=== PATIENT | male | born 1940 | race Caucasian/White ===

== ENCOUNTER 2019-05-27 09:51 | Outpatient (RCR) | payer OTHER, SELFPAY ==
--- NOTE | 2019-05-27 16:05 | PTOPEVAL ---
Thank you for referring this patient to [facility]. Please review, sign, date and return this plan of care JAN. I agree with and certify that the following plan of care is medically necessary. 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 reports that he underwent Query Text:As Reported By Patient/ knee replacment in February. Family He reports he was suppose to start OP rehab 1 month ago, but was unable to because of recent eye surgery. He reports that he currently has no pain in the right knee. He reports that he still utilizes a cane for long distance walking. He reports that his goal for therpay is to walk without an AD with all IADL's. Prior Level of Function Activity Level (Last 3 Months) Hand Dominance Right Activity of Daily Living Ability Independent Indoor/Home Mobility Independent Community Mobility Independent Stairs Ability Independent Functional Cognition (Planning, Shopping Independent , Taking Medications) Cooking Yes Cleaning Yes Laundry Yes Shopping Yes Driving Yes Pain Assessment Pain Scale Pain Scale Used Numeric (1 - 10) Self Report Pain Assessment Right Knee(s) Reported Pain Level 0 Current Pain Intensity 0 Lowest Pain Intensity 0 Pain Aggravating Factors None Pain Behaviors None Pain Relief Interventions Used By None Patient Pain Score Pain Score 0: Self Report Lower Extremity Range of Motion General Lower Extremity Range of Motion Gross Lower Extremity Range of Motion Pt. presents with 5-115 Comments degrees right knee AROM Lower Extremity Muscle Strength Testing General Lower Extremity Strength Gross Lower Extremity Strength right hip flexion 4+/5, left hip flexion 5/5, right knee flexion
== END 2019-06-27 11:04 | disposition home or self-care (01) ==
LOC: CHSPT 09:51
DX: Z96.651 Presence of right artificial knee joint (principal)
CPT/HCPCS: 97110; 97161; 97530

== ENCOUNTER 2019-10-03 08:37 | Emergency (ER) | payer OTHER, SELFPAY ==
[2019-10-03 08:45] VITALS: BP 141/79; PULSE 74; RESP 18; O2SAT 97
[2019-10-03] MEDS: methylPREDNISolone ACETATE 40 MG/ML VIAL 80 MG IM (09:00)
--- NOTE | 2019-10-03 09:05 | ED.ALLEREA ---
HPI - Allergic Reaction General Stated complaint: bite on arm Source: patient Mode of arrival: ambulatory Limitations: no limitations History of Present Illness HPI narrative: This is an 79-year-old gentleman that presents with a insect bite with mild inflammation to his right forearm that occurred yesterday while he was sitting in a swing currently there is a approximately 3cm indurated area that is red with a central punctate lesion that is itchy nontender no pain no drainage no numbness or tingling in his fingers has a good brisk radial pulse has good range of motion no hand swelling no shortness of breath no nausea vomiting no audible wheezing no fever chills. complaint: allergic reaction Onset (ago): day(s) Exposure: insect bite Symptoms: rash and itching Severity: mild Treatment prior to arrival: none Previous Allergic Reaction History: none Related Data Allergies Allergy/AdvReac Type Severity Reaction Status Date / Time No Known Allergies Allergy Verified 10/03/19 09:11 Review of Systems Review of Systems: All systems reviewed & are unremarkable except as noted in HPI and below PMFSH Past Medical History Medical History HTN (hypertension) Exam Const: General: no acute distress and alert Orientation/consciousness: patient oriented x3 HENMT: Head: normal to inspection Eyes: Conjunctivae: conjunctivae normal Pupils: Equal, round and reactive pupils present Neck: Neck: normal visual inspection and no lymphadenopathy Chest: Chest palpation & inspection: normal inspection of the chest Resp: Effort & Inspection: normal respiratory effort Auscultation: clear to auscultation bilaterally Cardio: Rate: regular rate Rhythm: regular rhythm GI: GI Palp: Yes Soft to palpation Auscultation: normal bowel sounds Skin: General skin exam: normal color Other: 3Cm indurated area right forearm with a central punctate lesion, with no drainage no tenderness just itching Neuro: General: patient oriented x3, moves all extremities and no meningeal signs Extrem: General: normal to inspection Psych: Appearance: grossly normal Affect: normal affect Attitude: cooperative Thought content: Yes Normal thought content present Course Course Emergency Course: reassured patient that this appears to be a insect bite related to possible local reaction does not appear ulcerated with no drainage, patient received IM Depo-Medrol 80 mg and advised patient to take Zyrtec 10 mg [id number] daily for 1 week along with prescribed a Medrol Dosepak. Critical Care Time Critical Care Time Critical Care Time: No Discharge Plan Discharge Clinical Impression: Insect bite Qualifiers: Encounter type: initial encounter Site of insect bite: forearm Laterality: right Qualified Code(s): S50.861A - Insect bite (nonvenomous) of right forearm, initial encounter Allergic reaction Qualifiers: Encounter type: initial encounter Qualified Code(s): T78.40XA - Allergy, unspecified, initial encounter Patient Disposition: Home, Self-Care Condition: Stable Instructions: Antibiotic Form Additional Instructions: Take medicine as prescribed and follow-up with primary care physician if symptoms persist or worsen. Prescriptions: New methylprednisolone [Medrol (Estevan)] 4 mg tablets,dose pack See Rx Instructions .ROUTE .COMPLEX Qty: 21 RF: 0 Follow-up/Referrals: UNKNOWN,DOCTOR [Primary Care Provider] - Time of Disposition: 09:12
--- NOTE | 2019-10-03 12:56 | PCCCNOTE ---
Called ED [facility]. Spoke with Javon
== END 2019-10-03 09:23 | disposition home or self-care (01) ==
PROVIDERS: Emergency Provider Emergency Medicine
DX: S50.861A Insect bite (nonvenomous) of right forearm, initial encounter (principal); W57.XXXA Bitten or stung by nonvenomous insect and other nonvenomous arthropods, initial encounter; T78.40XA Allergy, unspecified, initial encounter
CPT/HCPCS: 96372; 99283; J1030

== ENCOUNTER 2021-02-13 10:58 | Outpatient (RCR) | payer OTHER, SELFPAY ==
--- NOTE | 2021-02-13 11:46 | PTOPEVAL ---
Thank you for referring Shan Galeano to [facility] [place].? The patient is scheduled to be seen for therapy? ____x/week for ___ weeks. Please review, sign, date and return this plan of care JAN. I agree with and certify that the following plan of care is medically necessary. 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 he reports the knee cap will slide out on him at times. he reports he has had about 3 episodes in the last year. he reports otherwise he does well without any pain in the L knee. he reports he a little bit of difficutly with steps ( walking down sideways), but reports this is has been the way he has performed this activity since his R knee replacement. Prior Level of Function Comments Additional Prior Level of Function patient reports he has been Comments having issues for about 2 years. he reports infrequent issues. he reports is paricipating in all activities without limitations. Pain Assessment Timing of Pain Assessment Timing of Pain Assessment Assessment Self Report Self Report Pain Level 0 Pain Score Pain Score 0: Self Report Lower Extremity Range of Motion General Lower Extremity Range of Motion Gross Lower Extremity Range of Motion R knee arom flexion = 113 Comments degrees R knee arom extension = -3 degrees from 0 L knee arom flexion = 115 degrees L knee arom extension = 0 degrees Muscle Length Testing Muscle Length Testing Left Hamstring Length
--- NOTE | 2021-02-26 10:55 | PTOPEVAL ---
Thank you for referring Shan Galeano to [facility].? The patient is scheduled to be seen for therapy? ____x/week for ___ weeks. Please review, sign, date and return this plan of care JAN. I agree with and certify that the following plan of care is medically necessary. 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 He states that his knee is sore after therapy because of the exercises, but does not have much pain at all. Pain Assessment Timing of Pain Assessment Timing of Pain Assessment Assessment Self Report Self Report Pain Level 0 Pain Score Pain Score 0: Self Report Lower Extremity Range of Motion General Lower Extremity Range of Motion Gross Lower Extremity Range of Motion R knee AROM flexion: 119 Comments R knee AROM extension: 1 Lower Extremity Muscle Strength Testing General Lower Extremity Strength Gross Lower Extremity Strength L knee flexion strength: 5/5 R knee flexion strength: 5/5 L knee extension strength: 5/5 R knee extension strength: 5/5 R hip strength: 5/5 L hip strength: 5/5 Muscle Length Testing Muscle Length Testing Left Hamstring Length 5 Query Text:(90 - 90 Position) Right Hamstring Length 10 Query Text:(90 - 90 Position) Palpation Assessment Palpation Palpation Patient no longer has tenderness, but continues to demonstrate excessive lateral tracking of the L patella. Gait Assessment Gait Assessment Additional Ambulation Comments Patient ambulates into the clinic with proper gait mechanics and a safe pace. General Exercise General Exercises Exercise Description -nustep 10 minutes level 5 Query Text:Record Sets, Reps, with bilateral UE's and LE's Resistance, and Position for an active warm up of ti
== END 2021-02-26 14:22 | disposition home or self-care (01) ==
LOC: CHSPT 10:58
DX: M23.52 Chronic instability of knee, left knee (principal); Z96.653 Presence of artificial knee joint, bilateral
CPT/HCPCS: 97110; 97161; 97530

== ENCOUNTER 2021-04-19 11:48 | Emergency (ER) | payer OTHER, SELFPAY ==
[2021-04-19 12:04] VITALS: BP 149/63; PULSE 95; RESP 16; TEMP 36.1; O2SAT 98
[2021-04-19 12:04] LABS: Glucose Point of Care 214 mg/dl (65-105)
--- NOTE | 2021-04-19 12:09 | ED.GENADULT ---
HPI - General Adult General Chief complaint: Unspecified Stated complaint: diabete, sugar getting higher Source: patient Mode of arrival: ambulatory Limitations: no limitations History of Present Illness HPI narrative: this is a 81-year-old gentleman with a history of diabetes currently on metformin and glipizide had a large carbohydrate loaded breakfast with some frosted Mini weeds and new tele on toast and felt a little lightheaded checked his blood sugars and they were in the range of 240 to 260 repeat blood sugars here in the ER is 214 currently no dizziness no headaches no blurry vision no chest pain no abdominal pain no shortness of breath no fever chills no nausea vomiting. Onset (ago): hour(s) Related Data Home Medications Medication Instructions Recorded Confirmed metformin 1,000 mg PO BIDWMEAL 04/19/21 04/19/21 Allergies Allergy/AdvReac Type Severity Reaction Status Date / Time No Known Allergies Allergy Verified 04/19/21 12:12 Review of Systems Review of Systems: All systems reviewed & are unremarkable except as noted in HPI and below PMFSH Past Medical History Medical History (Updated 04/19/21 @ 12:14 by Angelo Broderick MD) HTN (hypertension) Exam Const: General: no acute distress Orientation/consciousness: patient oriented x3 HENMT: Head: normal to inspection Eyes: Conjunctivae: conjunctivae normal Pupils: Equal, round and reactive pupils present EOM: EOMs intact bilaterally Direct Ophthalmoscopy: no photophobia Neck: Neck: normal visual inspection, no lymphadenopathy and no meningeal signs Chest: Chest palpation & inspection: normal inspection of the chest Resp: Effort & Inspection: normal respiratory effort Auscultation: clear to auscultation bilaterally Cardio: Rate: regular rate GI: GI Palp: Yes Soft to palpation Percussion: Yes normal to percussion : Testes: Testes normal Urinary Catheter: Urinary Catheter: patent and draining Back/Spine/Pelvis: Back: no CVA tenderness Skin: General skin exam: normal color Rashes: no rashes Neuro: General: patient oriented x3, moves all extremities, no meningeal signs and no focal motor deficits Extrem: General: normal to inspection and no pedal edema Psych: Mental Status: mental status grossly normal Course Course Emergency Course: Patient here because blood sugars were measured over 200 repeat blood sugars here in the ER were 214 patient had a large sugar load for breakfast, reassured patient to go home eat more protein and fresh vegetables and follow up with his primary care physician. Vital Signs Vital signs: Vital Signs Temperature 36.1 C L 04/19/21 12:04 Pulse Rate 95 04/19/21 12:04 Respiratory Rate 16 04/19/21 12:04 Blood Pressure 149/63 H 04/19/21 12:04 Pulse Oximetry 98 04/19/21 12:04 Temperature 36.1 C L 04/19/21 12:04 Pulse Rate 95 04/19/21 12:04 Respiratory Rate 16 04/19/21 12:04 Blood Pressure 149/63 H 04/19/21 12:04 Pulse Oximetry 98 04/19/21 12:04 Medical Decision Making Vital Signs Vital Signs: Vital Signs Temperature 36.1 C L 04/19/21 12:04 Pulse Rate 95 04/19/21 12:04 Respiratory Rate 16 04/19/21 12:04 Blood Pressure 149/63 H 04/19/21 12:04 Pulse Oximetry 98 04/19/21 12:04 Temperature 36.1 C L 04/19/21 12:04 Pulse Rate 95 04/19/21 12:04 Respiratory Rate 16 04/19/21 12:04 Blood Pressure 149/63 H 04/19/21 12:04 Pulse Oximetry 98 04/19/21 12:04 Lab Data Labs: Lab Results 04/19/21 Range/Units 12:02 POC Capillary Glucose 214 H (65-105) mg/dl Critical Care Time Critical Care Time Critical Care Time: No Discharge Plan Discharge Clinical Impression: Hyperglycemia Patient Disposition: Home, Self-Care Condition: Stable Instructions: Antibiotic Form, Diabetic Hyperglycemia (ED) Additional Instructions: take medicine as prescribed continue to follow a protein with low-carbohydrate diet and follow
[2021-04-19 12:23] VITALS: BP 126/69; PULSE 88; RESP 16; TEMP 36.4; O2SAT 98
== END 2021-04-19 12:25 | disposition home or self-care (01) ==
PROVIDERS: Emergency Provider Emergency Medicine
DX: E11.65 Type 2 diabetes mellitus with hyperglycemia (principal)
CPT/HCPCS: 82948; 99282